=== PATIENT | female | born 1980 | race Caucasian/White ===

== ENCOUNTER 2016-09-18 23:52 | Emergency (ER) | payer SELFPAY ==
[~2016-09-18] VITALS: Ht 157.5 cm; Wt 97.5 kg
[~2016-09-18 23:52] MED LIST: ACET325T38 PO; BENZ56AE TP; CODE-54 PO; Docusate Sodium PO; FRS325T PO; Ibuprofen PO; PREN1TAB19 PO
[2016-09-19 02:41] LABS: BASOPHILS # (AUTO) 0.1 10^3/uL (0.0-0.1); BASOPHILS % (AUTO) 1 % (0-10); EOSINOPHILS # (AUTO) 0.3 10^3/uL (0.0-0.3); EOSINOPHILS % (AUTO) 3 % (0-10); LYMPHOCYTES # (AUTO) 1.9 X 10^3 (1.0-4.0); LYMPHOCYTES % (AUTO) 20 % (12-44); MEAN CORPUSCULAR HEMOGLOBIN 28 PG (25-34); MEAN CORPUSCULAR HGB CONC 33 G/DL (32-36); MEAN CORPUSCULAR VOLUME 84 FL (80-99); MEAN PLATELET VOLUME 9.1 FL (7.4-10.4); MONOCYTES # (AUTO) 0.8 X 10^3 (0.0-1.0); MONOCYTES % (AUTO) 8 % (0-12); NEUTROPHILS # (AUTO) 6.3 X 10^3 (1.8-7.8); NEUTROPHILS % (AUTO) 67 % (42-75); PLATELET COUNT 407 10^3/uL (130-400); RED BLOOD COUNT 4.68 10^6/uL (4.35-5.85); RED CELL DISTRIBUTION WIDTH 13.4 % (10.0-14.5); WHITE BLOOD COUNT 9.4 10^3/uL (4.3-11.0)
[2016-09-19 02:57] LABS: ALANINE AMINOTRANSFERASE 22 U/L (0-55); ANION GAP 13 MMOL/L (5-14); ASPARTATE AMINO TRANSFERASE 18 U/L (5-34); BILIRUBIN,TOTAL 0.4 MG/DL (0.1-1.0); BLOOD UREA NITROGEN 14 MG/DL (7-18); BUN/CREATININE RATIO 15; CALCIUM 9.4 MG/DL (8.5-10.1); CARBON DIOXIDE 27 MMOL/L (21-32); CHLORIDE 97 MMOL/L (98-107); CREATININE SERUM 0.96 MG/DL (0.60-1.30); GFR ESTIMATED > 60; GLUCOSE 107 MG/DL (70-105); POTASSIUM 4.1 MMOL/L (3.6-5.0); SODIUM 137 MMOL/L (135-145); TOTAL PROTEIN 8.2 GM/DL (6.4-8.2); hs C REACTIVE PROTEIN 1.38 MG/DL (0.00-0.50)
--- NOTE | 2016-09-19 03:09 | ED Lower Extremity ---
General Chief Complaint: Lower Extremity Stated Complaint: SWELLING FEET Nursing Triage Note: PT ABULATED TO ROOM. PT STATES BOTH HER LEGS "HURT REALLY BAD". APPROX 2 WEEKS AGO SHE STARTED TO HAVE THE PAIN, AND SWELLING IN HER LEGS. ALSO REDDNESS TO BOTH HER ANKLES. Nursing Sepsis Screen: No Definite Risk Source: patient Exam Limitations: no limitations History of Present Illness Time seen by provider: 02:20 Initial Comments Here with report of bilateral lower extremity swelling that is worsening. Started on antibiotics and mild diuretic at the clinic but states that is not helping. Denies fever or chills. Denies breathing problems. Onset: last week Severity: moderate Pain/Injury Location: bilateral leg, bilateral thigh Method of Injury: unknown Modifying Factors: Improves With Immobilization, Worse With Movement Allergies and Home Medications Allergies Coded Allergies: No Known Drug Allergies (Unverified , 01/26/14) Home Medications Acetaminophen/Codeine 1 Tab Tablet, 1-2 TAB PO Q4H PRN for MODERATE TO SEVERE PAIN, #30 Prescribed by: YUMIKO SHAFER on 02/07/14828 Benzocaine/Menthol 56 Ml Aerosol, 56 ML TP UD PRN for PAIN, #1 Prescribed by: YUMIKO SHAFER on 02/07/14828 Ferrous Sulfate 325 Mg Tab, 325 MG PO DAILY, #30 Prescribed by: YUMIKO SHAFER on 02/07/14828 Vit/Fe Fumarate/Fa 1 Each Tablet, 1 EACH PO DAILY, (Reported) [Docusate Sodium] 100 MG CAP, 100 MG PO BID PRN for CONSTIPATION, #40 Prescribed by: YUMIKO SHAFER on 02/07/14828 [Ibuprofen] 600 MG TAB, 600 MG PO Q6H, #60 Prescribed by: YUMIKO SHAFER on 02/07/14828 Constitutional: see HPI, No chills, No fever EENTM: no symptoms reported Respiratory: no symptoms reported Cardiovascular: No chest pain, edema Gastrointestinal: No nausea, No vomiting Genitourinary: no symptoms reported Musculoskeletal: No joint pain, muscle pain Skin: change in color All Other Systems Reviewed Negative Unless Noted: Yes Past Pyquspe-Ssbosd-Teqlha Hx Patient Social History Alcohol Use: Rarely Uses Recreational Drug Use: Yes (kevin) Smoking Status: Current Someday Smoker Type Used: Cigarettes 2nd Hand Smoke Exposure: Yes Recent Foreign Travel: No Contact w/Someone Who Travel: No Recent Infectious Disease Expo: No Recent Hopitalizations: No Immunizations Up To Date Tetanus Booster (TDap): Unknown PED Vaccines UTD: Yes Date of Influenza Vaccine: Jan 26, 2014 Seasonal Allergies Seasonal Allergies: No Surgeries HX Surgeries: Yes Surgeries: Orthopedic Respiratory Hx Respiratory Disorders: Yes Respiratory Disorders: Chronic Bronchitis Cardiovascular Hx Cardiac Disorders: No Neurological Hx Neurological Disorders: No Reproductive System Hx Reproductive Disorders: No Sexually Transmitted Disease: Yes (HPV) HIV/AIDS: No Female Reproductive Disorders: Denies Genitourinary Hx Genitourinary Disorders: Yes Genitourinary Disorders: Kidney Infection, UTI-Chronic Gastrointestinal Hx Gastrointestinal Disorders: No Musculoskeletal Hx Musculoskeletal Disorders: No Endocrine Hx Endocrine Disorders: No HEENT HX ENT Disorders: No Cancer Hx Cancer: No Psychosocial Hx Psychiatric Problems: Yes Behavioral Health Disorders: Anxiety, Depression Integumentary HX Skin/Integumentary Disorder: No Blood Transfusions Hx Blood Disorders: No Adverse Reaction to a Blood Tr: No Reviewed Nursing Assessment Reviewed/Agree w Nursing PMH: Yes Family Medical History Family Medial History: Alcoholism 19 FATHER, Onset:20's - Asthma 19 MOTHER, Onset:20's - 25 Cardiovascular disease 19 MOTHER, Onset:50's - 60 (CHF) Drug abuse G8 BROTHER, Onset:15's - 20 Headache disorder 19 FATHER, Onset:20's - 19 MOTHER, Onset:20's - 25 G8 BROTHER, Onset:15's - 20 G8 SISTER, Onset:20's - 25 Hypercholesterolemia 19 FATHER, Onset:40's - 50 Myocardial infarction 19 MOTHER, Onset:50's - 60 Neoplasm 19 MOTHER, Onset:60 years & older Osteoporosis 19 FATHER, Onset:30's - 40 Psychosocial problem 19 FATHER, Onset:30's - 40 G8 SISTER, Onset:10's - 15 Respiratory disorder 19 MOTHER, Onset:50's - 60 Seizure disorder G8 BROTHER, Onset:20's - 25 Physical Exam Vital Signs Vital Sign - Last 12Hours 09/19/16 01:15 Temp 98.4 Pulse 100 Resp 18 B/P (MAP) 119/90 Pulse Ox 96 O2 Delivery Room Air Capillary Refill : Less Than 3 Seconds General Appearance: WD/WN, no apparent distress HEENT: PERRL/EOMI, pharynx normal Neck: full range of motion, supple Cardiovascular: regular rate, rhythm, no murmur Respiratory: lungs clear, normal breath sounds Gastrointestinal: non tender, soft Back: normal inspection, no CVA tenderness, no vertebral tenderness Legs: bilateral leg swelling, bilateral leg other (swelling noted to bilateral feet and lower legs. Mild erythema to the anterior legs bilaterally.) Neurologic/Psychiatric: alert, oriented x 3 Skin: warm/dry, other (erythema as described above) Progress/Results/Core Measures Results/Orders Lab Results Laboratory Tests Test 09/19/16 02:31 Range/Units White Blood Count 9.4 4.3-11.0 10^3/uL Red Blood Count 4.68 4.35-5.85 10^6/uL Hemoglobin 13.0 11.5-16.0 G/DL Hematocrit 39 35-52 % Mean Corpuscular Volume 84 80-99 FL Mean Corpuscular Hemoglobin 28 25-34 PG Mean Corpuscular Hemoglobin Concent 33 32-36 G/DL Red Cell Distribution Width 13.4 10.0-14.5 % Platelet Count 407 H 130-400 10^3/uL Mean Platelet Volume 9.1 7.4-10.4 FL Neutrophils (%) (Auto) 67 42-75 % Lymphocytes (%) (Auto) 20 12-44 % Monocytes (%) (Auto) 8 0-12 % Eosinophils (%) (Auto) 3 0-10 % Basophils (%) (Auto) 1 0-10 % Neutrophils # (Auto) 6.3 1.8-7.8 X 10^3 Lymphocytes # (Auto) 1.9 1.0-4.0 X 10^3 Monocytes # (Auto) 0.8 0.0-1.0 X 10^3 Eosinophils # (Auto) 0.3 0.0-0.3 10^3/uL Basophils # (Auto) 0.1 0.0-0.1 10^3/uL Sodium Level 137 135-145 MMOL/L Potassium Level 4.1 3.6-5.0 MMOL/L Chloride Level 97 L 98-107 MMOL/L Carbon Dioxide Level 27 21-32 MMOL/L Anion Gap 13 5-14 MMOL/L Blood Urea Nitrogen 14 7-18 MG/DL Creatinine 0.96 0.60-1.30 MG/DL Estimat Glomerular Filtration Rate > 60 BUN/Creatinine Ratio 15 Glucose Level 107 H 70-105 MG/DL Calcium Level 9.4 8.5-10.1 MG/DL Total Bilirubin 0.4 0.1-1.0 MG/DL Aspartate Amino Transf (AST/SGOT) 18 5-34 U/L Alanine Aminotransferase (ALT/SGPT) 22 0-55 U/L Alkaline Phosphatase 73 40-136 U/L C-Reactive Protein High Sensitivity 1.38 H 0.00-0.50 MG/DL Total Protein 8.2 6.4-8.2 GM/DL Albumin 4.0 3.2-4.5 GM/DL My Orders Orders - CINDY LOMBARDO MD Cbc With Automated Diff (09/19/16 02:11) Comprehensive Metabolic Panel (09/19/16 02:11) Hs C Reactive Protein (09/19/16 02:11) Saline Lock/Iv-Start (09/19/16 02:11) Ceftriaxone Injection (Rocephin Injectio (09/19/16 03:45) Ketorolac Injection (Toradol Injection) (09/19/16 03:33) Vital Signs/I&O Vital Sign - Last 12Hours 09/19/16 01:15 Temp 98.4 Pulse 100 Resp 18 B/P (MAP) 119/90 Pulse Ox 96 O2 Delivery Room Air Blood Pressure Mean: 100 Progress Note : Progress Note Seen and evaluated. IV and labs ordered. Monitor patient. No significant findings on laboratory evaluation. Due to clinical symptoms, Rocephin IV 1 g given. Toradol 30 mg IV. Monitor patient. Discharged home with return precautions. Patient verbalize understanding instructions and agreement with plan. Departure Impression Impression: Primary Impression: Cellulitis of both lower extremities Disposition: HOME, SELF-CARE Condition: Improved Departure-Patient Inst. Decision time for Depature: 03:41 Referrals: [facility] (PCP/Family) Primary Care Physician Patient Instructions: Cellulitis (Skin Infection), Adult (DC) Add. Discharge Instructions: All discharge instructions reviewed with patient and/or family. Voiced understanding. Continue home medications as directed. You should elevate your feet several times daily to reduce swelling. Follow-up with your DrCrystal for recheck and further evaluation. Return for worsening, fever, vomiting, weakness, rhythm problems or other concerns as needed. CINDY LOMBARDO MD Sep 19, 2016 03:09
[2016-09-19] MEDS ORDERED: KETOROLAC 30 MG/ML VIAL IVP STA (03:33)
[2016-09-19] MEDS ORDERED: cefTRIAXone INJECTION 1,000 MG in NS (IVPB) 50 ML IV ONE (03:45)
[2016-09-19 04:30] VITALS: BP 119/90
== END 2016-09-19 04:30 | disposition home or self-care (01) ==
LOC: EDUNIT# 23:52 → ER 23:57
DX: L03.115 Cellulitis of right lower limb (principal); L03.116 Cellulitis of left lower limb; J42 Unspecified chronic bronchitis; F12.99 Cannabis use, unspecified with unspecified cannabis-induced disorder; F17.210 Nicotine dependence, cigarettes, uncomplicated
CPT/HCPCS: 36415; 80053; 85025; 86141; 96365; 96375

== ENCOUNTER → 2016-09-28 | Outpatient (CLI) | payer SELFPAY ==
--- NOTE | 2016-09-28 17:14 | Diagnostic Imaging Report ---
EXAMINATION: Bilateral lower extremity duplex venous ultrasound. TECHNIQUE: DVT protocol. Multiple sonographic images with color Doppler and waveform interrogation were performed of the lower extremity veins, bilaterally, with compression and augmentation maneuvers. INDICATION: Bilateral edema and the pain in the feet. FINDINGS: The lower extremity veins from the common femoral veins to below the knee veins were examined with normal color-flow, compressibility and normal waveform demonstrated. Areas of pain and edema in the feet were examined with no definite abnormality identified. IMPRESSION: No evidence of DVT in either lower extremity. Dictated by: Dictated on workstation # [id number]
== END ==
LOC: RAD 16:40
PROVIDERS: ATTEND Nurse Practitioner Family
DX: R60.0 Localized edema (principal)
CPT/HCPCS: 93970

== ENCOUNTER 2020-02-17 21:26 | Emergency (ER) | payer MEDICAID ==
[~2020-02-17] VITALS: Ht 157 cm; Wt 99.7 kg
--- NOTE | 2020-02-17 21:48 | ED GU-Female ---
General Stated Complaint: 10 WKS PREG/VAG BLEEDING/CRAMPS Source: patient History of Present Illness Date Seen by Provider: Feb 17, 2020 Time Seen by Provider: 21:35 Initial Comments PT ARRIVES VIA POV FROM HOME PT STATES SHE IS 10 WEEKS , WITH LMP 12/10/19 PT IS AB 0 FIRST OB APPOINTMENT IS WITH DR. SHAFER 02/27/20--HAS NOT ATTEMPTED TO CONTACT HIM FOR THIS PROBLEM. PT STATES SHE HAS BEEN HAVING SPOTTING FOR THE LAST 3 DAYS--HAS USED A TOTAL OF 3 PANTI-LINERS TODAY, NONE OF THEM SATURATED. HAS HAD LOWER ABDOMINAL CRAMPING OFF AND ON THROUGHOUT ALONG WITH OCCASIONAL LOWER BACK PAIN WELL NO URINARY SYMPTOMS + NAUSEA, NO VOMITING. NO DIARRHEA NO FEVER NO RECENT ILLNESS NO SICK CONTACTS OR KNOWN EXPOSURE TO COVID-19 WASHROOM OPERATOR: DR. SHAFER Allergies and Home Medications Allergies Coded Allergies: No Known Drug Allergies (Unverified , 01/26/14) Home Medications Acetaminophen/Codeine 1 Tab Tablet, 1-2 TAB PO Q4H PRN for MODERATE TO SEVERE PAIN Prescribed by: YUMIKO SHAFER on 02/07/14828 Benzocaine/Menthol 56 Ml Aerosol, 56 ML TP UD PRN for PAIN Prescribed by: YUMIKO SHAFER on 02/07/14828 Ferrous Sulfate 325 Mg Tab, 325 MG PO DAILY Prescribed by: YUMIKO SHAFER on 02/07/14828 Vit/Fe Fumarate/Fa 1 Each Tablet, 1 EACH PO DAILY, (Reported) [Docusate Sodium] 100 MG CAP, 100 MG PO BID PRN for CONSTIPATION Prescribed by: YUMIKO SHAFER on 02/07/14828 [Ibuprofen] 600 MG TAB, 600 MG PO Q6H Prescribed by: YUMIKO SHAFER on 02/07/14828 Patient Home Medication List Home Medication List Reviewed: Yes Review of Systems Review of Systems Constitutional: no symptoms reported Respiratory: no symptoms reported Cardiovascular: no symptoms reported Gastrointestinal: see HPI, abdominal pain; No constipation, No diarrhea; nausea; No vomiting Genitourinary: see HPI : No LMP: Dec 10, 2019 Musculoskeletal: see HPI, back pain Skin: no symptoms reported Psychiatric/Neurological: No Symptoms Reported Endocrine: No Symptoms Reported Hematologic/Lymphatic: No Symptoms Reported Past Dyjydrj-Rhpztf-Dcjewu Hx Past Med/Social Hx: Reviewed and Corrections made Patient Social History Alcohol Use: Occasionally Uses Recreational Drug Use: No Smoking Status: Current Everyday Smoker Type Used: Cigarettes 2nd Hand Smoke Exposure: Yes Recent Foreign Travel: No Contact w/Someone Who Travel: No Recent Hopitalizations: No Immunizations Up To Date Tetanus Booster (TDap): Unknown PED Vaccines UTD: Yes Date of Influenza Vaccine: Jan 26, 2014 Seasonal Allergies Seasonal Allergies: No Past Medical History Surgeries: Yes (BONE REMOVED IN RIGHT HAND, CYST REMOVED IN LEG) Orthopedic Respiratory: Yes Chronic Bronchitis Cardiac: No Neurological: No : No Reproductive Disorders: No Female Reproductive Disorders: Denies Sexually Transmitted Disease: Yes (HPV) HIV/AIDS: No Genitourinary: Yes Kidney Infection, UTI-Chronic Gastrointestinal: No Musculoskeletal: Yes (ORTHOPEDIC SURGERIES) Endocrine: No HEENT: No Cancer: No Psychosocial: Yes Anxiety, Depression Integumentary: No Blood Disorders: No Adverse Reaction/Blood Tranf: No Family Medical History Alcoholism 19 FATHER, Onset:20's - Asthma 19 MOTHER, Onset:20's - 25 Cardiovascular disease 19 MOTHER, Onset:50's - 60 (CHF) Drug abuse G8 BROTHER, Onset:15's - 20 Headache disorder 19 FATHER, Onset:20's - 19 MOTHER, Onset:20's - 25 G8 BROTHER, Onset:15's - 20 G8 SISTER, Onset:20's - Hypercholesterolemia 19 FATHER, Onset:40's - 50 Myocardial infarction 19 MOTHER, Onset:50's - 60 Neoplasm 19 MOTHER, Onset:60 years & older Osteoporosis 19 FATHER, Onset:30's - 40 Psychosocial problem 19 FATHER, Onset:30's - 40 G8 SISTER, Onset:10's - 15 Respiratory disorder 19 MOTHER, Onset:50's - 60 Seizure disorder G8 BROTHER, Onset:20's - 25 No Family History of: AIDS Abdominal aortic aneurysm Rafa's disease Alzheimer's disease Aphasia Arthritis Cancer of mouth Cataracts Colon cancer Completed stroke Congenital disease Congenital heart disease Coronary thrombosis Cystic fibrosis Deafness or hearing loss Dementia Diabetes mellitus Dysphasia Fibrocystic disease of breast Gastroenteritis Glaucoma Hypertension Infertility Kidney disease Not obtainable due to adoption Parkinson's disease Prostate cancer Severe allergy Thyroid disease Tuberculosis Visual disorder Physical Exam Vital Signs Vital Signs - First Documented 02/17/20 21:36 Temp 35.9 Pulse 97 Resp 16 B/P (MAP) 153/80 (104) O2 Delivery Room Air Capillary Refill : Height, Weight, BMI Height: 5'2.00" Weight: 215lbs. oz. 97.853965pf; 25.24 BMI Method:Stated General Appearance: WD/WN, no apparent distress, obese, other (WALKS UPRIGHT AND MOVES WITHOUT DIFFICULTY. DOES NOT APPEAR TO BE IN ANY DISCOMFORT OR DISTRESS) Cardiovascular: regular rate, rhythm, no murmur Respiratory: normal breath sounds Gastrointestinal: normal bowel sounds, non tender, soft, other (OBESE) Pelvic: normal external exam, normal adnexa, no cerv. motion tender, no masses; No lesions, No tender w/ cervical motion, No tender adnexa, No tender uterus; vaginal bleeding (VERY SCANT AMOUNT OF BLOOD IN CANAL. NO ACTIVE BLEEDING. CERVIX CLOSED) Extremities: normal inspection, no pedal edema Neurologic/Psychiatric: no motor/sensory deficits, alert, normal mood/affect, oriented x 3 Skin: normal color, warm/dry Progress/Results/Core Measures Suspected Sepsis SIRS Temperature: Pulse: Respiratory Rate: Laboratory Tests 02/17/20 22:00: White Blood Count 9.8 Blood Pressure / Mean: Laboratory Tests 02/17/20 22:00: Platelet Count 366 Results/Orders Lab Results Laboratory Tests Test 02/17/20 22:00 Range/Units White Blood Count 9.8 4.3-11.0 10^3/uL Red Blood Count 4.32 3.80-5.11 10^6/uL Hemoglobin 11.9 11.5-16.0 g/dL Hematocrit 38 35-52 % Mean Corpuscular Volume 88 80-99 fL Mean Corpuscular Hemoglobin 28 25-34 pg Mean Corpuscular Hemoglobin Concent 31 L 32-36 g/dL Red Cell Distribution Width 13.2 10.0-14.5 % Platelet Count 366 130-400 10^3/uL Mean Platelet Volume 9.7 9.0-12.2 fL Immature Granulocyte % (Auto) 0 % Neutrophils (%) (Auto) 69 42-75 % Lymphocytes (%) (Auto) 21 12-44 % Monocytes (%) (Auto) 6 0-12 % Eosinophils (%) (Auto) 3 0-10 % Basophils (%) (Auto) 1 0-10 % Neutrophils # (Auto) 6.8 1.8-7.8 10^3/uL Lymphocytes # (Auto) 2.1 1.0-4.0 10^3/uL Monocytes # (Auto) 0.6 0.0-1.0 10^3/uL Eosinophils # (Auto) 0.3 0.0-0.3 10^3/uL Basophils # (Auto) 0.1 0.0-0.1 10^3/uL Immature Granulocyte # (Auto) 0.0 0.0-0.1 10^3/uL Human Chorionic Gonadotropin, Quant 45178 H <5 MIU/ML My Orders Orders - LEONA HUNG DO Cbc With Automated Diff (02/17/20 21:32) Hcg,Quantitative (02/17/20 21:32) Abo Rh Type (02/17/20 21:32) Heart Tones (02/17/20 21:41) Vital Signs/I&O 02/17/20 21:36 Temp 35.9 Pulse 97 Resp 16 B/P (MAP) 153/80 (104) O2 Delivery Room Air Capillary Refill : Progress Note : Progress Note NO ULTRASOUND AVAILABLE AT THIS TIME UNABLE TO DETECT HEART TONES AT THIS TIME DID NOT USE ANY PADS DURING ER STAY BLOOD TYPE O+ Departure Impression Primary Impression: Threatened in first trimester Disposition: 01 HOME, SELF-CARE Condition: Stable Departure-Patient Inst. Referrals: YUMIKO SHAFER DO (PCP) Primary Care Physician [facility] (Family) Primary Care Physician Patient Instructions: Bleeding With (DC), Threatened Miscarriage (DC), Bleeding In Early Add. Discharge Instructions: TYLENOL NEEDED FOR PAIN KEEP AN ACCURATE PAD COUNT--RETURN TO ER IF SOAKING MORE THAN 1 MAXI PAD AN HOUR NOTHING IN VAGINA--NO TAMPONS, DOUCHING OR INTERCOURSE FOLLOW UP WITH DR. SHAFER THIS WEEK FOR FURTHER CARE, CALL IN AM TO SCHEDULE AN APPOINTMENT LEONA HUNG DO Feb 17, 2020 21:48
[2020-02-17 22:07] LABS: BASOPHILS # (AUTO) 0.1 10^3/uL (0.0-0.1); BASOPHILS % (AUTO) 1 % (0-10); EOSINOPHILS # (AUTO) 0.3 10^3/uL (0.0-0.3); EOSINOPHILS % (AUTO) 3 % (0-10); HEMATOCRIT 38 % (35-52); HEMOGLOBIN 11.9 g/dL (11.5-16.0); LYMPHOCYTES # (AUTO) 2.1 10^3/uL (1.0-4.0); LYMPHOCYTES % (AUTO) 21 % (12-44); MEAN CORPUSCULAR HEMOGLOBIN 28 pg (25-34); MEAN CORPUSCULAR HGB CONC 31 g/dL (32-36); MEAN CORPUSCULAR VOLUME 88 fL (80-99); MEAN PLATELET VOLUME 9.7 fL (9.0-12.2); MONOCYTES # (AUTO) 0.6 10^3/uL (0.0-1.0); MONOCYTES % (AUTO) 6 % (0-12); NEUTROPHILS # (AUTO) 6.8 10^3/uL (1.8-7.8); NEUTROPHILS % (AUTO) 69 % (42-75); PLATELET COUNT 366 10^3/uL (130-400); WHITE BLOOD COUNT 9.8 10^3/uL (4.3-11.0)
--- NOTE | 2020-02-17 22:10 | NUR ---
DR. HUNG AND THIS STONE FINISHER/RN ATTEMPTED FHT, BUT UNABLE TO HEAR AT THIS TIME.
[2020-02-17 23:10] VITALS: BP 137/79
== END 2020-02-17 23:11 | disposition home or self-care (01) ==
LOC: EDUNIT# 21:26 → ER 21:28
DX: O20.0 Threatened abortion (principal); Z3A.10 10 weeks gestation of pregnancy; E66.9 Obesity, unspecified; F17.210 Nicotine dependence, cigarettes, uncomplicated; Z82.49 Family history of ischemic heart disease and other diseases of the circulatory system; Z80.9 Family history of malignant neoplasm, unspecified
CPT/HCPCS: 36415; 84702; 85025; 86900; 86901

== ENCOUNTER → 2021-03-30 | Outpatient (CLI) | payer MEDICAID ==
[~2021-03-30] MED LIST changes: +RT-ALBUTEROL SULF 2.5 MG/3 ML PRE-MIX VIAL INH ONE
== END ==
LOC: RT 10:45
PROVIDERS: ATTEND Nurse Practitioner Family
DX: J45.40 Moderate persistent asthma, uncomplicated (principal)
CPT/HCPCS: 94060; 94726; 94729

== ENCOUNTER 2022-10-28 14:39 | Emergency (ER) | payer MEDICAID ==
[~2022-10-28 14:39] MED LIST changes: -RT-ALBUTEROL SULF 2.5 MG/3 ML PRE-MIX VIAL INH ONE
[2022-10-28 15:08] LABS: BASOPHILS # (AUTO) 0.1 10^3/uL (0.0-0.1); BASOPHILS % (AUTO) 1 % (0-10); EOSINOPHILS # (AUTO) 0.1 10^3/uL (0.0-0.3); EOSINOPHILS % (AUTO) 1 % (0-10); HEMATOCRIT 43 % (35-52); HEMOGLOBIN 14.1 g/dL (11.5-16.0); LYMPHOCYTES # (AUTO) 1.4 10^3/uL (1.0-4.0); LYMPHOCYTES % (AUTO) 10 % (12-44); MEAN CORPUSCULAR HEMOGLOBIN 28 pg (25-34); MEAN CORPUSCULAR HGB CONC 33 g/dL (32-36); MEAN CORPUSCULAR VOLUME 87 fL (80-99); MEAN PLATELET VOLUME 9.6 fL (9.0-12.2); MONOCYTES # (AUTO) 0.5 10^3/uL (0.0-1.0); MONOCYTES % (AUTO) 4 % (0-12); NEUTROPHILS # (AUTO) 11.2 10^3/uL (1.8-7.8); NEUTROPHILS % (AUTO) 84 % (42-75); PLATELET COUNT 435 10^3/uL (130-400); WHITE BLOOD COUNT 13.3 10^3/uL (4.3-11.0)
[2022-10-28 15:10] LABS: ALBUMIN 4.6 GM/DL (3.2-4.5)
--- NOTE | 2022-10-28 15:10 | ED Abdominal Pain ---
General Chief Complaint: Abdominal/GI Problems Stated Complaint: ABD PAIN Source of Information: Patient Exam Limitations: No Limitations History of Present Illness Date Seen by Provider: Oct 28, 2022 Time Seen by Provider: 15:02 Initial Comments 42-year-old female presents to the ER with severe mid abdominal pain starting last night around 10 PM. She stated that the pain started out as mild, but she woke up with severe pain, states the pain just keeps getting worse. She reports she has vomited several times. Denies diarrhea. Reports she had a small bowel movement today. Denies dysuria. Last menstrual cycle was 1 week ago. She has not had any abdominal surgeries. Reports she smokes cigarettes once a week, denies alcohol or drug use. Allergies and Home Medications Allergies Coded Allergies: No Known Drug Allergies (Unverified , 01/26/14) Patient Home Medication List Home Medication List Reviewed: Yes Acetaminophen/Codeine (Tylenol W/Codeine #3 Tablet) 1 Tab Tablet, 1-2 TAB PO Q4H PRN for MODERATE TO SEVERE PAIN Prescribed by: YUMIKO SHAFER on 02/07/14828 Benzocaine/Menthol (Dermoplast Coral) 56 Ml Aerosol, 56 ML TP UD PRN for PAIN Prescribed by: YUMIKO SHAFER on 02/07/14828 Ferrous Sulfate (Feosol Tab) 325 Mg Tab, 325 MG PO DAILY Prescribed by: YUMIKO SHAFER on 02/07/14828 Ondansetron (Ondansetron Odt) 4 Mg Tab.rapdis, 4 MG SL Q4H PRN for NAUSEA/VOMITING Prescribed by: Teresa Bansk on 10/28/221711 Pantoprazole Sodium (Protonix) 40 Mg Granpkt.dr, 40 MG PO DAILY Prescribed by: Teresa Banks on 10/28/221711 Vit/Fe Fumarate/Fa ( Vitamins Tablet) 1 Each Tablet, 1 EACH PO DAILY, (Reported) Entered as Reported by: LANA ACE on 01/26/141840 Sucralfate (Carafate) 1 Gram Tablet, 1 GM PO TIDAC Prescribed by: Teresa Banks on 10/28/221711 [Docusate Sodium] 100 MG CAP, 100 MG PO BID PRN for CONSTIPATION Prescribed by: YUMIKO SHAFER on 02/07/14828 [Ibuprofen] 600 MG TAB, 600 MG PO Q6H Prescribed by: YUMIKO SHAFER on 02/07/14828 Review of Systems Review of Systems Constitutional: see HPI Past Aulkclh-Hbtvfn-Bvkfwn Hx Immunizations Up To Date Tetanus Booster (TDap): Unknown PED Vaccines UTD: Yes Seasonal Allergies Seasonal Allergies: No Past Medical History Surgeries: Yes (BONE REMOVED IN RIGHT HAND, CYST REMOVED IN LEG) Orthopedic Respiratory: Yes Chronic Bronchitis Cardiac: No Neurological: No Reproductive Disorders: No Female Reproductive Disorders: Denies Sexually Transmitted Disease: Yes (HPV) HIV/AIDS: No Genitourinary: Yes Kidney Infection, UTI-Chronic Gastrointestinal: No Musculoskeletal: Yes (ORTHOPEDIC SURGERIES) Endocrine: No HEENT: No Cancer: No Psychosocial: Yes Anxiety, Depression Integumentary: No Blood Disorders: No Adverse Reaction/Blood Tranf: No Family Medical History Alcoholism 19 FATHER, Onset:20's - Asthma 19 MOTHER, Onset:20's - 25 Cardiovascular disease 19 MOTHER, Onset:50's - 60 (CHF) Drug abuse G8 BROTHER, Onset:15's - 20 Headache disorder 19 FATHER, Onset:20's - 19 MOTHER, Onset:20's - 25 G8 BROTHER, Onset:15's - 20 G8 SISTER, Onset:20's - 25 Hypercholesterolemia 19 FATHER, Onset:40's - 50 Myocardial infarction 19 MOTHER, Onset:50's - 60 Neoplasm 19 MOTHER, Onset:60 years & older Osteoporosis 19 FATHER, Onset:30's - 40 Psychosocial problem 19 FATHER, Onset:30's - 40 G8 SISTER, Onset:10's - 15 Respiratory disorder 19 MOTHER, Onset:50's - 60 Seizure disorder G8 BROTHER, Onset:20's - 25 No Family History of: AIDS Abdominal aortic aneurysm Greer's disease Alzheimer's disease Aphasia Arthritis Cancer of mouth Cataracts Colon cancer Completed stroke Congenital disease Congenital heart disease Coronary thrombosis Cystic fibrosis Deafness or hearing loss Dementia Diabetes mellitus Dysphasia Fibrocystic disease of breast Gastroenteritis Glaucoma Hypertension Infertility Kidney disease Not obtainable due to adoption Parkinson's disease Prostate cancer Severe allergy Thyroid disease Tuberculosis Visual disorder Physical Exam Vital Signs Vital Signs - First Documented 10/28/22 14:50 Temp 37.1 Pulse 100 Resp 22 B/P (MAP) 160/87 (111) Pulse Ox 96 O2 Delivery Room Air Capillary Refill : Height/Weight/BMI Height: 5'2.00" Weight: 215lbs. oz. 97.564097cc; 40.00 BMI Method:Stated General Appearance: severe distress Neck: supple, normal inspection Respiratory: lungs clear, normal breath sounds, no respiratory distress, no accessory muscle use Cardiovascular: regular rate, rhythm Gastrointestinal: normal bowel sounds (Difficult to hear due to patient crying), soft, tenderness (Tenderness mid upper and mid abdomen) Extremities: normal range of motion, normal inspection Neurologic/Psychiatric: alert, normal mood/affect Skin: normal color, warm/dry Progress/Results/Core Measures Results/Orders Lab Results Laboratory Tests Test 10/28/22 14:54 10/28/22 15:47 Range/Units White Blood Count 13.3 H 4.3-11.0 10^3/uL Red Blood Count 4.99 3.80-5.11 10^6/uL Hemoglobin 14.1 11.5-16.0 g/dL Hematocrit 43 35-52 % Mean Corpuscular Volume 87 80-99 fL Mean Corpuscular Hemoglobin 28 25-34 pg Mean Corpuscular Hemoglobin Concent 33 32-36 g/dL Red Cell Distribution Width 13.1 10.0-14.5 % Platelet Count 435 H 130-400 10^3/uL Mean Platelet Volume 9.6 9.0-12.2 fL Immature Granulocyte % (Auto) 0 % Neutrophils (%) (Auto) 84 H 42-75 % Lymphocytes (%) (Auto) 10 L 12-44 % Monocytes (%) (Auto) 4 0-12 % Eosinophils (%) (Auto) 1 0-10 % Basophils (%) (Auto) 1 0-10 % Neutrophils # (Auto) 11.2 H 1.8-7.8 10^3/uL Lymphocytes # (Auto) 1.4 1.0-4.0 10^3/uL Monocytes # (Auto) 0.5 0.0-1.0 10^3/uL Eosinophils # (Auto) 0.1 0.0-0.3 10^3/uL Basophils # (Auto) 0.1 0.0-0.1 10^3/uL Immature Granulocyte # (Auto) 0.0 0.0-0.1 10^3/uL Sodium Level 139 135-145 MMOL/L Potassium Level 4.5 3.6-5.0 MMOL/L Chloride Level 104 98-107 MMOL/L Carbon Dioxide Level 23 21-32 MMOL/L Anion Gap 12 5-14 MMOL/L Blood Urea Nitrogen 12 7-18 MG/DL Creatinine 0.84 0.60-1.30 MG/DL Estimat Glomerular Filtration Rate 89 BUN/Creatinine Ratio 14 Glucose Level 130 H 70-105 MG/DL Calcium Level 9.8 8.5-10.1 MG/DL Corrected Calcium 8.5-10.1 MG/DL Total Bilirubin 0.5 0.1-1.0 MG/DL Aspartate Amino Transf (AST/SGOT) 18 5-34 U/L Alanine Aminotransferase (ALT/SGPT) 18 0-55 U/L Alkaline Phosphatase 89 40-136 U/L Total Protein 8.4 H 6.4-8.2 GM/DL Albumin 4.6 H 3.2-4.5 GM/DL Lipase 16 8-78 U/L Urine Color YELLOW Urine Clarity CLEAR Urine pH 7.0 5-9 Urine Specific [place] 1.020 1.016-1.022 Urine Protein 1+ H NEGATIVE Urine Glucose (UA) NEGATIVE NEGATIVE Urine Ketones 4+ H NEGATIVE Urine Nitrite NEGATIVE NEGATIVE Urine Bilirubin 1+ H NEGATIVE Urine Urobilinogen 0.2 < = 1.0 MG/DL Urine Leukocyte Esterase NEGATIVE NEGATIVE Urine RBC (Auto) TRACE H NEGATIVE Urine RBC NONE /HPF Urine WBC RARE /HPF Urine Squamous Epithelial Cells 5-10 /HPF Urine Crystals NONE /LPF Urine Bacteria FEW H /HPF Urine Casts NONE /LPF Urine Mucus MODERATE H /LPF Urine Culture Indicated YES My Orders Orders - TERESA DURHAM APRN Comprehensive Metabolic Panel (10/28/22 15:01) Lipase (10/28/22 15:01) Ua Culture If Indicated (10/28/22 15:01) Urine Bedside (10/28/22 15:01) Ed Iv/Invasive Line Start (10/28/22 15:01) Cbc With Automated Diff (10/28/22 15:01) Ondansetron Injection (Zofran Injectio (10/28/22 15:15) Fentanyl Injection (Fentanyl Injection (10/28/22 15:15) Ct Abdomen/Pelvis W (10/28/22 15:08) Ns Iv 1000 Ml (Sodium Chloride 0.9%) (10/28/22 15:15) Iohexol Injection (Omnipaque 350 Mg/Ml 1 (10/28/22 15:30) Received Contrast (Hold Metformin- Contr (10/28/22 15:30) Ns (Ivpb) 100 Ml (Sodium Chloride 0.9% 1 (10/28/22 15:30) Droperidol Injection (Ed Only) (Droperid (10/28/22 16:15) Urine Culture (10/28/22 15:47) Diphenhydramine Injection (Diphenhydram (10/28/22 16:45) Pantoprazole Injection (Protonix Injecti (10/28/22 17:15) Medications Given in ED Current Medications Medications Dose Ordered Sig/Dean Route Start Time Stop Time Status Last Admin Dose Admin Diphenhydramine HCl 12.5 mg ONCE ONCE IVP 10/28/22 16:45 10/28/22 16:46 DC 10/28/22 16:34 12.5 MG Droperidol 2.5 mg ONCE ONCE IV 10/28/22 16:15 10/28/22 16:16 DC 10/28/22 16:34 2.5 MG Fentanyl Citrate 75 mcg ONCE ONCE IVP 10/28/22 15:15 10/28/22 15:16 DC 10/28/22 15:15 75 MCG Iohexol 100 ml ONCE ONCE IV 10/28/22 15:30 10/28/22 15:31 DC 10/28/22 15:45 80 ML Ondansetron HCl 4 mg ONCE ONCE IVP 10/28/22 15:15 10/28/22 15:16 DC 10/28/22 15:15 4 MG Pantoprazole 40 mg ONCE ONCE IV 10/28/22 17:15 10/28/22 17:16 DC 10/28/22 17:13 40 MG Sodium Chloride 100 ml ONCE ONCE IV 10/28/22 15:30 10/28/22 15:31 DC 10/28/22 15:45 80 ML Vital Signs/I&O 10/28/22 10/28/22 14:50 17:32 Temp 37.1 37.1 Pulse 100 90 Resp 22 18 B/P (MAP) 160/87 (111) 150/76 Pulse Ox 96 97 O2 Delivery Room Air Room Air Progress Progress Note : Progress Note Patient seen and evaluated, severe distress, crying during assessment due to pain. Based on exam and symptoms, differential diagnosis includes but is not limited to pancreatitis, gastritis, PUD, GERD, other intra-abdominal pathologies. Workup initiated including CBC, CMP, lipase, UA, urine , CT abdomen pelvis. IV fluids, fentanyl, Zofran ordered. [address] reviewed. CBC shows slightly elevated WBC 13.3, slightly elevated neutrophil percentage 84. CMP grossly normal, glucose 130. Lipase normal. Urine shows 4+ ketones, 1+ bilirubin, trace RBCs, few bacteria, rare WBCs, 10-25 squamous epithelial cells. I am not concerned for urinary tract infection. CT abdomen pelvis shows no acute abnormality. It does show renal cysts and occasional calcified granulomas in the spleen. Granulomas in the spleen could be related to tuberculosis infection, patient has no risk factors for tuberculosis. Lungs on CT appear clear. Results discussed with patient. Patient reports she is feeling a lot better after the droperidol and Benadryl. Patient instructed to follow-up with primary care provider regarding renal cysts and granulomas in the spleen. Will discharge patient with prescriptions for Protonix and Carafate, this pain could be related to a peptic ulcer. Will also prescribe Zofran for nausea and vomiting. Will have her follow-up with surgery. Discharge instructions and return precautions provided. Departure Impression Primary Impression: Abdominal pain Disposition: 01 HOME, SELF-CARE Condition: Stable Departure-Patient Inst. Decision time for Depature: 17:07 Referrals: GLADYS VILCHIS DO Patient Instructions: Severe Abdominal Pain, Adult (DC) Add. Discharge Instructions: Call Dr. Vilchis's office tomorrow to schedule a follow-up appointment. Take Protonix once daily. Take Carafate 1 hour prior to eating up to 3 times a day. Take Zofran as needed for nausea and vomiting, it can cause constipation, so only take when needed. Follow-up with your primary care provider regarding the cyst on your kidneys and the calcified granulomas in your spleen. Return for severe pain, recurrent vomiting, or any other new, concerning, or worsening symptoms. All discharge instructions reviewed with patient and/or family. Voiced understanding. Scripts Sucralfate (Carafate) 1 Gram Tablet 1 GM PO TIDAC for 14 Days, #42 TAB 0 Refills Prov: TERESA DURHAM APRN 10/28/22 Pantoprazole Sodium (Protonix) 40 Mg Granpkt.dr 40 MG PO DAILY for 42 Days, #42 TAB 0 Refills Prov: TERESA DURHAM APRN 10/28/22 Ondansetron (Ondansetron Odt) 4 Mg Tab.rapdis 4 MG SL Q4H PRN for NAUSEA/VOMITING, #20 TAB 0 Refills Prov: TERESA DURHAM APRN 10/28/22 TERESA DURHAM APRN Oct 28, 2022 15:09
[2022-10-28 15:11] LABS: CHLORIDE 104 MMOL/L (98-107); POTASSIUM 4.5 MMOL/L (3.6-5.0); SODIUM 139 MMOL/L (135-145)
[2022-10-28 15:12] LABS: CALCIUM 9.8 MG/DL (8.5-10.1)
[2022-10-28 15:13] LABS: GLUCOSE 130 MG/DL (70-105); TOTAL PROTEIN 8.4 GM/DL (6.4-8.2)
[2022-10-28 15:14] LABS: CARBON DIOXIDE 23 MMOL/L (21-32)
[2022-10-28 15:15] LABS: BILIRUBIN,TOTAL 0.5 MG/DL (0.1-1.0)
[2022-10-28] MEDS: fentaNYL INJECTION 100 MCG/2 ML VIAL IVP ONE (15:15)
[2022-10-28] MEDS: ONDANSETRON 4 MG/2 ML (SDV) Z0FRAN IVP ONE (15:15)
[2022-10-28 15:16] LABS: ALKALINE PHOSPHATASE 89 U/L (40-136)
[2022-10-28 15:17] LABS: CREATININE SERUM 0.84 MG/DL (0.60-1.30); GFR ESTIMATED 89
[2022-10-28 15:18] LABS: BUN/CREATININE RATIO 14
[2022-10-28 15:19] LABS: ALANINE AMINOTRANSFERASE 18 U/L (0-55)
[2022-10-28 15:20] LABS: LIPASE 16 U/L (8-78)
[2022-10-28] MEDS ORDERED: HOLD METFORMIN - RECEIVED CONTRAST 20 ML VIAL IV SCH (15:30)
[2022-10-28] MEDS: NS 100 ML (IVPB) BAG IV ONE (15:45)
[2022-10-28] MEDS: IOHEXOL 350 MG/ML 100 ML (OMNIPAQUE 350) VIAL IV ONE (15:45)
[2022-10-28] MEDS: NS IV 1000 ML 1,000 ML IV SCH (15:59)
--- NOTE | 2022-10-28 15:59 | Diagnostic Imaging Report ---
PROCEDURE: CT abdomen and pelvis with contrast. TECHNIQUE: Multiple contiguous axial images were obtained through the abdomen and pelvis after administration of intravenous contrast. Auto Exposure Controls were utilized during the CT exam to meet ALARA standards for radiation dose reduction. All CT scans use one or more of the following dose optimizing techniques: automated exposure control, MA and/or KvP adjustment based on patient size and exam type or iterative reconstruction. INDICATION: Abdominal pain with nausea. FINDINGS: No focal hepatic, gallbladder or pancreatic abnormality is identified. Adrenal glands are unremarkable. There are occasional calcified granulomas in the spleen. Occasional renal cortical cysts are also noted without evidence of hydronephrosis or solid renal mass. There is no free fluid in the abdomen or pelvis. No organized fluid collection is seen. Unopacified bladder is unremarkable in appearance. There is no bowel obstruction. There is mild L4-L5 and L5-S1 degenerative disc disease. Small amount of fat protrudes to the umbilical defect. IMPRESSION: No evidence of acute abnormality. Dictated by: Dictated on workstation # [id number]
[2022-10-28] MEDS ORDERED: diphenhydrAMINE INJ 50 MG/ML VIAL IM ONE (16:15)
[2022-10-28 16:18] LABS: CLARITY,URINE CLEAR; COLOR,URINE YELLOW
[2022-10-28 16:19] LABS: BACTERIA,URINE FEW /HPF; BILIRUBIN,URINE 1+ (NEGATIVE); GLUCOSE, URINE (UA) NEGATIVE (NEGATIVE); KETONES,URINE 4+ (NEGATIVE); LEUKOCYTE ESTERASE ,URINE NEGATIVE (NEGATIVE); NITRITE,URINE NEGATIVE (NEGATIVE); PROTEIN,URINE 1+ (NEGATIVE); WBC,URINE RARE /HPF
[2022-10-28] MEDS: DroPERidol INJECTION 5 MG/2 ML (ED ONLY!) IV ONE (16:34)
[2022-10-28] MEDS: diphenhydrAMINE INJ 50 MG/ML VIAL IVP ONE (16:34)
[2022-10-28] MEDS ORDERED: PANT40SU PO (17:12)
[2022-10-28] MEDS ORDERED: SUCR1TAB36 PO (17:12)
[2022-10-28] MEDS ORDERED: ONDA4TAB11 SL (17:12)
[2022-10-28] MEDS: PANTOPRAZOLE 40 MG (PROTONIX) VIAL IV ONE (17:13)
[2022-10-28 17:32] VITALS: BP 150/76
== END 2022-10-28 17:35 | disposition home or self-care (01) ==
LOC: EDUNIT# 14:39 → ER 14:41
DX: R10.10 Upper abdominal pain, unspecified (principal); R11.2 Nausea with vomiting, unspecified
CPT/HCPCS: 36415; 74177; 80053; 81000; 83690; 84703; 85025; 87088

== ENCOUNTER 2022-11-05 15:51 | Emergency (ER) | payer MEDICAID ==
[~2022-11-05] VITALS: Ht 157.5 cm; Wt 93.9 kg
[~2022-11-05 15:51] MED LIST changes: +ONDA4TAB11 SL; +PANT40SU PO; +SUCR1TAB36 PO
[2022-11-05] MEDS ORDERED: NS IV 1000 ML 1,000 ML IV STA (16:09)
[2022-11-05] MEDS ORDERED: ANTACID SUSPENSION 30 ML UDC PO ONE (16:15)
[2022-11-05] MEDS ORDERED: ONDANSETRON 4 MG/2 ML (SDV) Z0FRAN IVP ONE (16:15)
[2022-11-05] MEDS ORDERED: LIDOCAINE 2% VISCOUS 15 ML UDC PO ONE (16:15)
[2022-11-05 16:18] LABS: BASOPHILS # (AUTO) 0.1 10^3/uL (0.0-0.1); BASOPHILS % (AUTO) 0 % (0-10); EOSINOPHILS % (AUTO) 0 % (0-10); HEMATOCRIT 42 % (35-52); HEMOGLOBIN 13.5 g/dL (11.5-16.0); LYMPHOCYTES # (AUTO) 1.5 10^3/uL (1.0-4.0); LYMPHOCYTES % (AUTO) 11 % (12-44); MEAN CORPUSCULAR HEMOGLOBIN 28 pg (25-34); MEAN CORPUSCULAR HGB CONC 33 g/dL (32-36); MEAN CORPUSCULAR VOLUME 87 fL (80-99); MEAN PLATELET VOLUME 9.8 fL (9.0-12.2); MONOCYTES # (AUTO) 0.5 10^3/uL (0.0-1.0); MONOCYTES % (AUTO) 4 % (0-12); NEUTROPHILS # (AUTO) 11.6 10^3/uL (1.8-7.8); NEUTROPHILS % (AUTO) 84 % (42-75); PLATELET COUNT 456 10^3/uL (130-400); WHITE BLOOD COUNT 13.8 10^3/uL (4.3-11.0)
--- NOTE | 2022-11-05 16:24 | ED Abdominal Pain ---
General Chief Complaint: Abdominal/GI Problems Stated Complaint: VOMITING/ABD PAIN Nursing Triage Note: PT AMBULATE TO ROOM 07 WITHOUT DIFFICULTY WITH C/O ABD PAIN, N/V STARTING THIS MORNING AT 0530. PT REPORTS BEING SEEN AT THIS ED ON 10/28/22 AND TOLD SHE HAS A STOMACH ULCER. PT REPORTS HAVING AN APPT WITH SURGEON ON TUESDAY AND WAS SEEN BY HER PCP TODAY FOR SAME C/O. Source of Information: Patient Exam Limitations: No Limitations History of Present Illness Date Seen by Provider: Nov 05, 2022 Time Seen by Provider: 16:21 Initial Comments Patient is a 42-year-old female with a history of gastric ulcer who presents to the ED for abdominal pain. Patient states started this morning around 530. She went to her primary care physician received lidocaine and Zofran without much improvement. She did vomit this morning and reports feeling nauseous since. She feels like there is gas in her upper abdomen. Pain is described as sharp with radiation to back. Interim pain since October 28 when she was evaluated here. She is scheduled follow-up with Dr. Vilchis next Tuesday. No history of previous abdominal surgery. Denies chest pain, shortness of breath, cough, headache, dizziness, dysuria, hematuria. She reports intermittent vomiting over the past week Allergies and Home Medications Allergies Coded Allergies: No Known Drug Allergies (Unverified , 01/26/14) Patient Home Medication List Home Medication List Reviewed: Yes Acetaminophen/Codeine (Tylenol W/Codeine #3 Tablet) 1 Tab Tablet, 1-2 TAB PO Q4H PRN for MODERATE TO SEVERE PAIN Prescribed by: YUMIKO SHAFER on 02/07/14828 Benzocaine/Menthol (Dermoplast [place]) 56 Ml Aerosol, 56 ML TP UD PRN for PAIN Prescribed by: YUMIKO SHAFER on 02/07/14828 Ferrous Sulfate (Feosol Tab) 325 Mg Tab, 325 MG PO DAILY Prescribed by: YUMIKO SHAFER on 02/07/14828 Ondansetron (Ondansetron Odt) 4 Mg Tab.rapdis, 4 MG SL Q4H PRN for NAUSEA/VOMITING Prescribed by: Teresa Banks on 10/28/221711 Pantoprazole Sodium (Protonix) 40 Mg Granpkt.dr, 40 MG PO DAILY Prescribed by: Teresa Banks on 10/28/221711 Vit/Fe Fumarate/Fa ( Vitamins Tablet) 1 Each Tablet, 1 EACH PO DAILY, (Reported) Entered as Reported by: LANA ACE on 01/26/14 184 Sucralfate (Carafate) 1 Gram Tablet, 1 GM PO TIDAC Prescribed by: Teresa Banks on 10/28/221711 [Docusate Sodium] 100 MG CAP, 100 MG PO BID PRN for CONSTIPATION Prescribed by: YUMIKO SHAFER on 02/07/14 08 [Ibuprofen] 600 MG TAB, 600 MG PO Q6H Prescribed by: YUMIKO SHAFER on 02/07/14 08 Review of Systems Review of Systems Constitutional: No chills EENTM: No Double Vision, No Eye Pain Respiratory: Denies Cough, Denies Orthopnea Cardiovascular: Denies Chest Pain Gastrointestinal: Abdominal Pain; Denies Diarrhea; Nausea, Vomiting Genitourinary: Denies Burning, Denies Discharge, Denies Frequency Musculoskeletal: No back pain, No joint pain All Other Systems Reviewed Negative Unless Noted: Yes Past Rahdqly-Fvrzbq-Wgisjl Hx Patient Social History Tobacco Use?: No Smoking Status: Never a Smoker Smokeless Tobacco Frequency: Never a User Use of E-Cig and/or Vaping dev: No Use of E-Cig and/or Vaping [place]: Never a User Substance use?: No Alcohol Use?: No Pt feels they are or have been: No Immunizations Up To Date Tetanus Booster (TDap): Unknown PED Vaccines UTD: Yes Seasonal Allergies Seasonal Allergies: No Past Medical History Surgery/Hospitalization HX: ASTHMA Surgeries: Yes (BONE REMOVED IN RIGHT HAND, CYST REMOVED IN LEG) Orthopedic Respiratory: Yes Chronic Bronchitis Cardiac: No Neurological: No Reproductive Disorders: No Female Reproductive Disorders: Denies Sexually Transmitted Disease: Yes (HPV) HIV/AIDS: No Genitourinary: Yes Kidney Infection, UTI-Chronic Gastrointestinal: No Musculoskeletal: Yes (ORTHOPEDIC SURGERIES) Endocrine: No HEENT: No Cancer: No Psychosocial: Yes Anxiety, Depression Integumentary: No Blood Disorders: No Adverse Reaction/Blood Tranf: No Family Medical History Alcoholism 19 FATHER, Onset:20's - 25 Asthma 19 MOTHER, Onset:20's - 25 Cardiovascular disease 19 MOTHER, Onset:50's - 60 (CHF) Drug abuse G8 BROTHER, Onset:15's - 20 Headache disorder 19 FATHER, Onset:20's - 19 MOTHER, Onset:20's - 25 G8 BROTHER, Onset:15's - 20 G8 SISTER, Onset:20's - Hypercholesterolemia 19 FATHER, Onset:40's - 50 Myocardial infarction 19 MOTHER, Onset:50's - 60 Neoplasm 19 MOTHER, Onset:60 years & older Osteoporosis 19 FATHER, Onset:30's - 40 Psychosocial problem 19 FATHER, Onset:30's - 40 G8 SISTER, Onset:10's - 15 Respiratory disorder 19 MOTHER, Onset:50's - 60 Seizure disorder G8 BROTHER, Onset:20's - 25 No Family History of: AIDS Abdominal aortic aneurysm Rafa's disease Alzheimer's disease Aphasia Arthritis Cancer of mouth Cataracts Colon cancer Completed stroke Congenital disease Congenital heart disease Coronary thrombosis Cystic fibrosis Deafness or hearing loss Dementia Diabetes mellitus Dysphasia Fibrocystic disease of breast Gastroenteritis Glaucoma Hypertension Infertility Kidney disease Not obtainable due to adoption Parkinson's disease Prostate cancer Severe allergy Thyroid disease Tuberculosis Visual disorder Physical Exam Vital Signs Vital Signs - First Documented 11/05/22 15:58 Temp 37.0 Pulse 87 Resp 20 B/P (MAP) 164/81 (108) O2 Delivery Room Air Capillary Refill : Less Than 3 Seconds Height/Weight/BMI Height: 5'2.00" Weight: 215lbs. oz. 97.005181pn; 37.00 BMI Method:Stated General Appearance: WD/WN, no apparent distress HEENT: PERRL/EOMI, normal ENT inspection, TMs normal, pharynx normal Neck: non-tender, full range of motion, supple Respiratory: chest non-tender, lungs clear, normal breath sounds, no respiratory distress, no accessory muscle use Cardiovascular: regular rate, rhythm, no edema, no gallop, no JVD Gastrointestinal: normal bowel sounds, soft, no pulsatile mass, tenderness (Gastric tenderness.) Extremities: normal range of motion, non-tender, normal inspection, no pedal edema Back: normal inspection, no CVA tenderness, no vertebral tenderness 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, no motor/sensory deficits, alert, normal mood/affect, oriented x 3 Skin: normal color, warm/dry Progress/Results/Core Measures Results/Orders Lab Results Laboratory Tests Test 11/05/22 16:02 11/05/22 16:29 Range/Units White Blood Count 13.8 H 4.3-11.0 10^3/uL Red Blood Count 4.81 3.80-5.11 10^6/uL Hemoglobin 13.5 11.5-16.0 g/dL Hematocrit 42 35-52 % Mean Corpuscular Volume 87 80-99 fL Mean Corpuscular Hemoglobin 28 25-34 pg Mean Corpuscular Hemoglobin Concent 33 32-36 g/dL Red Cell Distribution Width 13.3 10.0-14.5 % Platelet Count 456 H 130-400 10^3/uL Mean Platelet Volume 9.8 9.0-12.2 fL Immature Granulocyte % (Auto) 0 % Neutrophils (%) (Auto) 84 H 42-75 % Lymphocytes (%) (Auto) 11 L 12-44 % Monocytes (%) (Auto) 4 0-12 % Eosinophils (%) (Auto) 0 0-10 % Basophils (%) (Auto) 0 0-10 % Neutrophils # (Auto) 11.6 H 1.8-7.8 10^3/uL Lymphocytes # (Auto) 1.5 1.0-4.0 10^3/uL Monocytes # (Auto) 0.5 0.0-1.0 10^3/uL Eosinophils # (Auto) 0.0 0.0-0.3 10^3/uL Basophils # (Auto) 0.1 0.0-0.1 10^3/uL Immature Granulocyte # (Auto) 0.1 0.0-0.1 10^3/uL Sodium Level 140 135-145 MMOL/L Potassium Level 4.1 3.6-5.0 MMOL/L Chloride Level 107 98-107 MMOL/L Carbon Dioxide Level 23 21-32 MMOL/L Anion Gap 10 5-14 MMOL/L Blood Urea Nitrogen 8 7-18 MG/DL Creatinine 0.82 0.60-1.30 MG/DL Estimat Glomerular Filtration Rate 92 BUN/Creatinine Ratio 10 Glucose Level 120 H 70-105 MG/DL Calcium Level 9.3 8.5-10.1 MG/DL Corrected Calcium 8.9 8.5-10.1 MG/DL Total Bilirubin 0.5 0.1-1.0 MG/DL Aspartate Amino Transf (AST/SGOT) 17 5-34 U/L Alanine Aminotransferase (ALT/SGPT) 17 0-55 U/L Alkaline Phosphatase 75 40-136 U/L Total Protein 8.2 6.4-8.2 GM/DL Albumin 4.5 3.2-4.5 GM/DL Lipase 11 8-78 U/L Urine Color YELLOW Urine Clarity CLEAR Urine pH 7.0 5-9 Urine Specific [place] >=1.030 1.016-1.022 Urine Protein NEGATIVE NEGATIVE Urine Glucose (UA) NEGATIVE NEGATIVE Urine Ketones 2+ H NEGATIVE Urine Nitrite NEGATIVE NEGATIVE Urine Bilirubin NEGATIVE NEGATIVE Urine Urobilinogen 0.2 < = 1.0 MG/DL Urine Leukocyte Esterase NEGATIVE NEGATIVE Urine RBC (Auto) TRACE H NEGATIVE Urine RBC RARE /HPF Urine WBC NONE /HPF Urine Squamous Epithelial Cells NONE /HPF Urine Crystals NONE /LPF Urine Bacteria NEGATIVE /HPF Urine Casts NONE /LPF Urine Mucus NEGATIVE /LPF Urine Culture Indicated NO Urine Opiates Screen NEGATIVE NEGATIVE Urine Oxycodone Screen NEGATIVE NEGATIVE Urine Methadone Screen NEGATIVE NEGATIVE Urine Propoxyphene Screen NEGATIVE NEGATIVE Urine Barbiturates Screen NEGATIVE NEGATIVE Ur Tricyclic Antidepressants Screen NEGATIVE NEGATIVE Urine Phencyclidine Screen NEGATIVE NEGATIVE Urine Amphetamines Screen NEGATIVE NEGATIVE Urine Methamphetamines Screen NEGATIVE NEGATIVE Urine Benzodiazepines Screen NEGATIVE NEGATIVE Urine Cocaine Screen NEGATIVE NEGATIVE Urine Cannabinoids Screen POSITIVE H NEGATIVE My Orders Orders - FELICIANO JONES Ua Culture If Indicated (11/05/22 15:58) Cbc With Automated Diff (11/05/22 16:09) Comprehensive Metabolic Panel (11/05/22 16:09) Lipase (11/05/22 16:09) Ns Iv 1000 Ml (Sodium Chloride 0.9%) (11/05/22 16:09) Ondansetron Injection (Zofran Injectio (11/05/22 16:15) Lidocaine 2% Viscous 15 Ml (Xylocaine Vi (11/05/22 16:15) Antacid Suspension (Antacid Suspension (11/05/22 16:15) Promethazine Injection (Phenergan Injec (11/05/22 17:00) Drug Screen Stat (Urine) (11/05/22 17:18) Abdomen/[place]ub [place] (11/05/22 17:42) Medications Given in ED Current Medications Medications Dose Ordered Sig/Dean Route Start Time Stop Time Status Last Admin Dose Admin Al Hydrox/Mg Hydrox/Simethicone 30 ml ONCE ONCE PO 11/05/22 16:15 11/05/22 16:16 DC 11/05/22 16:19 30 ML Lidocaine HCl 15 ml ONCE ONCE PO 11/05/22 16:15 11/05/22 16:16 DC 11/05/22 16:19 15 ML Ondansetron HCl 4 mg ONCE ONCE IVP 11/05/22 16:15 11/05/22 16:16 DC 11/05/22 16:19 4 MG Promethazine HCl 25 mg ONCE ONCE IVP 11/05/22 17:00 11/05/22 17:01 DC 11/05/22 17:02 25 MG Vital Signs/I&O 11/05/22 15:58 Temp 37.0 Pulse 87 Resp 20 B/P (MAP) 164/81 (108) O2 Delivery Room Air Blood Pressure Mean: 108 Departure Communication (PCP) Reviewed previous ER visits, H&P, lab testing. Differential diagnosis, ga stritis, peptic ulcer disease, biliary colic, pancreatitis. Patient woke up with severe upper abdominal pain. She vomited this morning. Continue feeling nauseous. Dry heaving on arrival. Was seen here October [address] scan of her abdomen pelvis which was negative. Generalized lab work was grossly unremarkable with a slight elevated white blood count. She is scheduled follow- up with Dr. Vilchis on Tuesday. Denies alcohol or NSAID use. No history of previous abdominal surgeries. Patient was discharged with Protonix and Carafate and Zofran. Was seen today added Pepcid by her primary care physician. Patient in mild distress on arrival. She received a dose of Zofran and started on a liter of fluid with fentanyl. She continued having dry heaving and received a dose of Phenergan. CBC, CMP, lipase with urinalysis with drug screen was ordered. CBC, CMP was grossly unremarkable. She did have a slightly elevated white blood count at 13 which is very similar to her last lab draw. Urinalysis was negative for infection. Symptoms pain did improve. She did receive a GI cocktail but vomited the cocktail initially. Abdominal x-ray was ordered to rule out any free air which was unremarkable. No evidence of obstruction. Patient tested positive for marijuana. Discussed with patient that this could and most likely be due to gastritis versus ulcer. She denies of any bloody stools with normal hemoglobin. 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 She has attempted a bland diet. She has had some days where the pain has improved with the medication. Worse again this morning when she woke up. Other etiologies would be cyclic vomiting syndrome. Discussed stopping the marijuana. Discussed clear liquid diet for the next 2 or 3 days. May consider using Tums or Mylanta with your other medication. Due to reassuring lab work, normal lipase and liver enzymes patient will be discharged without any further imaging. Reassessed the abdomen without any tenderness. Due to her white blood count being very similar to her last lab drawl with reassuring CT scan from last visit unlikely cholecystitis. Other etiologies would be biliary colic which may need to be evaluated . Does not appear to be surgical at this time. Benefit with EGD Impression Primary Impression: Abdominal pain Disposition: HOME, SELF-CARE Condition: Stable Departure-Patient Inst. Decision time for Depature: 18:08 Referrals: [facility] (PCP/Family) Primary Care Physician GLADYS VILCHIS DO Patient Instructions: Nausea and Vomiting, Adult Add. Discharge Instructions: Continue with your Protonix and Pepcid. May use Mylanta or Tums. Clear liquid diet for the next 2 to 3 days. Follow-up with Dr. Vilchis on Tuesday. If any worsening symptoms return back to ED All discharge instructions reviewed with patient and/or family. Voiced understanding. FELICIANO JONES Nov 05, 2022 16:24
[2022-11-05 16:25] LABS: ALBUMIN 4.5 GM/DL (3.2-4.5); POTASSIUM 4.1 MMOL/L (3.6-5.0)
[2022-11-05 16:27] LABS: CALCIUM 9.3 MG/DL (8.5-10.1)
[2022-11-05 16:28] LABS: TOTAL PROTEIN 8.2 GM/DL (6.4-8.2)
[2022-11-05 16:30] LABS: BILIRUBIN,TOTAL 0.5 MG/DL (0.1-1.0)
[2022-11-05 16:31] LABS: CREATININE SERUM 0.82 MG/DL (0.60-1.30)
[2022-11-05] MEDS ORDERED: PROMETHAZINE INJ 25 MG/ML (PHENERGAN) AMP IVP ONE (17:00)
[2022-11-05 17:35] LABS: BACTERIA,URINE NEGATIVE /HPF; BILIRUBIN,URINE NEGATIVE (NEGATIVE); CLARITY,URINE CLEAR; COLOR,URINE YELLOW; GLUCOSE, URINE (UA) NEGATIVE (NEGATIVE); KETONES,URINE 2+ (NEGATIVE); LEUKOCYTE ESTERASE ,URINE NEGATIVE (NEGATIVE); NITRITE,URINE NEGATIVE (NEGATIVE); PROTEIN,URINE NEGATIVE (NEGATIVE); RBC,URINE RARE /HPF
[2022-11-05 18:01] LABS: AMPHETAMINE SCREEN, URINE NEGATIVE (NEGATIVE); BARBITURATE SCREEN URINE NEGATIVE (NEGATIVE); BENZODIAZEPINES SCREEN URINE NEGATIVE (NEGATIVE); CANNABINOID SCREEN, URINE POSITIVE (NEGATIVE); COCAINE SCREEN URINE NEGATIVE (NEGATIVE); METHADONE STAT NEGATIVE (NEGATIVE); OPIATE SCREEN URINE NEGATIVE (NEGATIVE); OXYCODONE STAT NEGATIVE (NEGATIVE); PROPOXYPHENE STAT NEGATIVE (NEGATIVE); TRICYCLIC ANTIDEPRESSANTS SCRE NEGATIVE (NEGATIVE)
--- NOTE | 2022-11-05 18:02 | Diagnostic Imaging Report ---
INDICATION: generalized abd pain. TECHNIQUE: 2 supine radiograph of the abdomen 5:58 PM CORRELATION STUDY: None FINDINGS: Imaging of the abdomen demonstrates the bowel gas pattern to be unremarkable and without evidence for obstruction. No significant differential air-fluid levels. No evidence for free air. No pathologic intraabdominal calcifications. IMPRESSION: 1. Non-obstructed appearing bowel gas pattern. Dictated by: Dictated on workstation # [id number]
[2022-11-05 18:23] VITALS: BP 134/73
== END 2022-11-05 18:23 | disposition home or self-care (01) ==
LOC: EDUNIT# 15:51 → ER 15:52
DX: R10.10 Upper abdominal pain, unspecified (principal); R11.2 Nausea with vomiting, unspecified; Z87.19 Personal history of other diseases of the digestive system; Z28.310 Unvaccinated for COVID-19
CPT/HCPCS: 36415; 74018; 80053; 80306; 81000; 83690; 85025

== ENCOUNTER 2022-11-08 13:10 | Outpatient (CLI) | payer MEDICAID ==
[~2022-11-08] VITALS: Ht 157.4 cm; Wt 92.2 kg
[2022-11-08] MEDS ORDERED: CALC500T7 PO (13:36)
[2022-11-08] MEDS ORDERED: PANT40TA52 PO (13:36)
[2022-11-08] MEDS ORDERED: CETI10TA17 PO (13:36)
[2022-11-08] MEDS ORDERED: BUDE10.26 IH (13:36)
[2022-11-08] MEDS ORDERED: ALBU2.5V4 INH (13:36)
[2022-11-08] MEDS ORDERED: FLUT16SP22 NS (13:36)
[2022-11-08] MEDS ORDERED: FAMO40TA72 PO (13:36)
== END 2022-11-08 13:49 | disposition home or self-care (01) ==
LOC: PREOP 13:10
PROVIDERS: ATTEND Surgery
DX: Z01.818 Encounter for other preprocedural examination (principal)

== ENCOUNTER 2022-11-09 11:12 | Day surgery (SDC) | payer MEDICAID ==
[~2022-11-09] VITALS: Ht 157.4 cm; Wt 92.2 kg
[~2022-11-09 11:12] MED LIST changes: +ALBU2.5V4 INH; +BUDE10.26 IH; +CALC500T7 PO; +CETI10TA17 PO; +FAMO40TA72 PO; +FLUT16SP22 NS; +PANT40TA52 PO
[2022-11-09] MEDS ORDERED: LACTATED RINGERS 1,000 ML 1,000 ML IV STA (11:22)
[2022-11-09] MEDS ORDERED: HURRICAINE EXT TUBE (BENZOCAINE) XX PRN (11:30)
[2022-11-09 11:55] VITALS: BP 129/88
--- NOTE | 2022-11-09 14:14 | Progress Note-Pre Operative ---
Pre-Operative Progress Note Date H&P Reviewed: Nov 09, 2022 Time H&P Reviewed: 14:13 History & Physical: H&P Reviewed, Patient Examed, No changes noted Pre-Operative Diagnosis: epigastric pain GLADYS VILCHIS DO Nov 09, 2022 14:14
[2022-11-09 14:27] VITALS: BP 133/87
[2022-11-09] MEDS ORDERED: proPOfol INJECTION 200 MG/20 ML VIAL IV ONE (14:28)
--- NOTE | 2022-11-09 14:29 | Progress Note-Post Operative ---
Post-Operative Progess Note Surgeon (s)/Industrial Real Estate Agent (s) Surgeon GLADYS VILCHIS DO Industrial Real Estate Agent: none Pre-Operative Diagnosis epigastric pain Post-Operative Diagnosis hiatal hernia and gastritis Procedure & Operative Findings Date of Procedure 11/09/22 Procedure Performed/Findings egd Anesthesia Type per [facility] Estimated Blood Loss Estimated blood loss (mL): none Specimens/Packing Specimens Removed antrum, GE GLADYS VILCHIS DO Nov 09, 2022 14:29
[2022-11-09 14:30] VITALS: BP 148/88
--- NOTE | 2022-11-09 14:30 | Discharge Inst-Simple/Standard ---
Discharge Inst-Standard Patient Instructions/Follow Up Plan of Care/Instructions/FU: reba 2 weeks Activity as Tolerated: Yes Discharge Diet: Regular Diet GLADYS VILCHIS DO Nov 09, 2022 14:30
--- NOTE | 2022-11-09 14:35 | Anesthesia-General Post-Op ---
MAC Patient Condition Mental Status/LOC: Same as Preop Cardiovascular: Satisfactory Nausea/Vomiting: Absent Respiratory: Satisfactory Pain: Controlled Complications: Absent Post Op Complications Complications None Follow Up Care/Instructions Patient Instructions None needed. Anesthesiology Discharge Order Discharge Order Patient is doing well, no complaints, stable vital signs, no apparent adverse anesthesia problems. No complications reported per nursing. ISELA FLORES DO Nov 09, 2022 14:35
[2022-11-09 14:58] VITALS: BP 148/88
--- NOTE | 2022-11-09 19:13 | OPERATIVE REPORT ---
DATE OF SERVICE: 11/09/2022 PREOPERATIVE DIAGNOSIS: Epigastric abdominal pain. POSTOPERATIVE DIAGNOSES: Slight gastritis, hiatal hernia. PROCEDURE: EGD with biopsy. SURGEON: Gladys Mirza DO ANESTHESIA: Per MDA. ESTIMATED BLOOD LOSS: None. COMPLICATIONS: None. INDICATIONS: The patient is a 42-year-old female with severe epigastric abdominal pain. She is on Protonix for treatment of ulcer. She understands risks and benefits of procedure and wishes to proceed. Consent was signed in chart. DESCRIPTION OF PROCEDURE: The patient was taken to endoscopy suite, placed in left lateral recumbent position. Timeout was performed. Scope was inserted into the mouth, down the esophagus, stomach, into the duodenum without difficulty. There were no polyps, masses or ulcerations within the duodenum. Scope was slowly retracted back into stomach, further insufflated. Slight gastritis appearance. Biopsy of the antrum was obtained. Scope was retroflexed, noting a hiatal hernia, no other pathology. Scope was returned to its normal position, slowly withdrawn to the distal esophagus. Biopsy of GE junction was obtained. Scope was slowly retracted back until completely removed. The patient tolerated the procedure well without complications, taken to recovery room in stable condition. RECOMMENDATIONS: The patient will continue on current medications. She will follow up in the office in 2 weeks to go over biopsy results. If symptoms do not improve, we would consider bringing up her gallbladder. Job ID: [id number] DocumentID: [id number] Dictated Date: 11/09/2022 14:30:51 Airset Molder Date: 11/09/2022 19:11:00 Dictated By: GLADYS MIRZA DO
== END 2022-11-09 14:58 | disposition home or self-care (01) ==
LOC: ENDO 11:12
PROVIDERS: ATTEND Surgery
DX: K29.70 Gastritis, unspecified, without bleeding (principal); K21.00 Gastro-esophageal reflux disease with esophagitis, without bleeding; K44.9 Diaphragmatic hernia without obstruction or gangrene; E66.9 Obesity, unspecified; Z68.37 Body mass index [BMI] 37.0-37.9, adult; Z87.891 Personal history of nicotine dependence
CPT/HCPCS: 84703